=== PATIENT | male | born 1945 | race Caucasian/White ===

== ENCOUNTER 2022-11-20 08:02 | Outpatient (CLI) | payer MEDICARE, OTHER ==
[2022-11-20] MEDS ORDERED: Iopamidol 370 76% 100 ML VIAL ONE (10:07)
== END 2022-11-20 08:03 | disposition home or self-care (01) ==
LOC: CT 08:02
PROVIDERS: ATTEND Urology
DX: C61 Malignant neoplasm of prostate (principal); C79.51 Secondary malignant neoplasm of bone
CPT/HCPCS: 74177; 78306; 82565; A9503

== ENCOUNTER 2025-03-07 12:30 | Outpatient (CLI) | payer MEDICARE | END 2025-03-07 12:31 | disposition home or self-care (01) | LOC: PET 12:30 | PROVIDERS: ATTEND Internal Medicine Hematology & Oncology | DX: C61 Malignant neoplasm of prostate (principal); M89.9 Disorder of bone, unspecified | CPT/HCPCS: 78815; A9595 ==

== ENCOUNTER 2025-03-29 14:23 | Outpatient (CLI) | payer MEDICARE ==
[2025-03-29 15:03] LABS: Estimated GFR - POC 77.0
== END 2025-03-29 14:24 | disposition home or self-care (01) ==
LOC: SCSMRI 14:23
PROVIDERS: ATTEND Internal Medicine Hematology & Oncology
DX: C61 Malignant neoplasm of prostate (principal); R93.49 Abnormal radiologic findings on diagnostic imaging of other urinary organs
CPT/HCPCS: 36415; 72197; 82565